=== PATIENT | male | born 1945 | race Caucasian/White ===

== ENCOUNTER 2018-04-09 06:01 | Emergency (ER) | payer MEDICARE, OTHER ==
[2018-04-09 06:38] VITALS: BP 136/88
--- NOTE | 2018-04-09 07:27 | EDM.PDOC ---
ED HPI GENERAL MEDICAL PROBLEM - General Chief Complaint: Lower Extremity Injury/Pain Stated Complaint: RIGHT HIP PAIN Time Seen by Provider: 04/09/18 07:04 Source of Information: Reports: Patient, RN Notes Reviewed History Limitations: Reports: No Limitations - History of Present Illness INITIAL COMMENTS - FREE TEXT/NARRATIVE: 73-year-old gentleman presents to the emergency department today complaint of right hip pain, states had pain for last to 3 days it seems to be more painful in certain positions he is able to ambulate on it. Denies any trauma has never had pain in this hip before no fevers no bruising no redness right hip Pain Score (Numeric/FACES): 2 - Related Data Allergies Allergy/AdvReac Type Severity Reaction Status Date / Time No Known Allergies Allergy Verified 04/09/18 06:28 Home Meds: Home Meds Metoprolol Tartrate 25 mg PO DAILY 04/09/18 [History] Tamsulosin [Flomax] 0.4 mg PO BEDTIME 04/09/18 [History] Warfarin Sodium [Jantoven] 5 mg PO ASDIRECTED 04/09/18 [History] Warfarin Sodium [Jantoven] 7.5 mg PO ASDIRECTED 04/09/18 [History] atorvaSTATin [Lipitor] 20 mg PO BEDTIME 04/09/18 [History] Past Medical History HEENT History: Reports: Impaired Vision Cardiovascular History: Reports: Afib Other Cardiovascular History: dyslipidemia Respiratory History: Reports: Other (See Below) Other Respiratory History: pulmonary nodule left Gastrointestinal History: Reports: Other (See Below) Other Gastrointestinal History: diverticulosis Genitourinary History: Reports: Prostate Disorder Musculoskeletal History: Reports: Osteoarthritis Other Musculoskeletal History: r hip osteoarthritis. l rotator cuff tendonitis. - Infectious Disease History Infectious Disease History: Reports: Measles, Mumps - Past Surgical History HEENT Surgical History: Reports: Detached Retina GI Surgical History: Reports: Hernia Repair/Other Male Surgical History: Reports: TURP-Transurethral Resection of Prostate Social & Family History - Tobacco Use Smoking Status *Q: Never Smoker - Caffeine Use Caffeine Use: Reports: None - Recreational Drug Use Recreational Drug Use: No Review of Systems - Review of Systems Review Of Systems: See Below Constitutional: Denies: Fever Musculoskeletal: Reports: Joint Pain (Right hip pain) ED EXAM, GENERAL - Physical Exam Exam: See Below Free Text/Narrative:: Examination of the right hip I don't appreciate any erythema there is no edema noted there is no point tenderness over the greater trochanter pelvic rock's is negative there is no pain with extension and flexion however he does have pain with internal rotation Exam Limited By: No Limitations General Appearance: Alert, WD/WN, No Apparent Distress Course - Vital Signs Last Recorded V/S: Last Vital Signs Temp 97.7 F 04/09/18 06:38 Pulse 73 04/09/18 06:38 Resp 15 04/09/18 06:38 BP 136/88 04/09/18 06:38 Pulse Ox 98 04/09/18 06:38 - Orders/Labs/Meds Orders: Active Orders 24 hr Category Date Time Status Hip Min 1V w Pelvis Rt [CR] Stat Exams 04/09/18 07:09 Taken Departure - Departure Time of Disposition: 08:09 Disposition: Home, Self-Care 01 Condition: Good Clinical Impression: Right hip pain - Discharge Information Referrals: Rashad Love MD [Primary Care Provider] - Forms: ED Department Discharge Additional Instructions: Please follow-up with orthopedics for further evaluation, call or return to the emergency department worsening of symptoms - My Orders Last 24 Hours: My Active Orders 04/09/18 07:09 Hip Min 1V w Pelvis Rt [CR] Stat - Assessment/Plan Last 24 Hours: My Active Orders 04/09/18 07:09 Hip Min 1V w Pelvis Rt [CR] Stat Plan: Assessment Acuity = acute Site and laterality = right hip pain Etiology = probably related to osteoarthritis Manifestations = none Location of injury = Home Lab values = hip and pelvis x-ray I did review films myself I cannot appreciate any acute process, the official read from radiology is pending Plan Recommended nonsteroidal anti-inflammatories or Tylenol as needed for pain control, consultation set up with orthopedics next week This note was dictated using [employer] voice recognition software please call with any questions on syntax or grammar.
--- NOTE | 2018-04-09 11:02 | CR ---
Hip Min 1V w Pelvis Rt INDICATION: pain FINDINGS: No evidence for acute fracture. Moderate/advanced degenerative arthritis right hip.
== END 2018-04-09 08:24 | disposition home or self-care (01) ==
LOC: JP.ED 06:01
DX: M25.551 Pain in right hip (principal); I48.91 Unspecified atrial fibrillation; E78.5 Hyperlipidemia, unspecified; Z79.899 Other long term (current) drug therapy
CPT/HCPCS: 73501-26-RT; 73501-RT; 99283

== ENCOUNTER 2019-11-02 07:49 | Emergency (ER) | payer MEDICARE, OTHER ==
--- NOTE | 2019-11-02 08:16 | EDM.PDOC ---
ED HPI GENERAL MEDICAL PROBLEM - General Chief Complaint: General Stated Complaint: SOME BLOOD IN THROAT Time Seen by Provider: 11/02/19 08:05 Source of Information: Reports: Patient History Limitations: Reports: No Limitations - History of Present Illness INITIAL COMMENTS - FREE TEXT/NARRATIVE: 74-year-old patient who has chronic atrial fibrillation and who is on Coumadin, woke up this morning with some blood in his mouth. He did not find a source and it has since resolved, he feels fine. No epistaxis that he knows of, no recent trauma. It is been 1 month since he is checked his INR. He has no shortness of breath or cough. He feels fine. Onset: Unknown/Unsure Associated Symptoms: Denies: Chest Pain, Fever/Chills, Headaches, Loss of Appetite, Nausea/Vomiting, Shortness of Breath, Weakness - Related Data Allergies Allergy/AdvReac Type Severity Reaction Status Date / Time No Known Allergies Allergy Verified 04/09/18 06:28 Home Meds: Home Meds Metoprolol Tartrate 25 mg PO DAILY 04/09/18 [History] Tamsulosin [Flomax] 0.4 mg PO BEDTIME 04/09/18 [History] Warfarin Sodium [Jantoven] 5 mg PO ASDIRECTED 04/09/18 [History] Warfarin Sodium [Jantoven] 7.5 mg PO ASDIRECTED 04/09/18 [History] atorvaSTATin [Lipitor] 20 mg PO BEDTIME 04/09/18 [History] Past Medical History HEENT History: Reports: Impaired Vision Cardiovascular History: Reports: Afib Other Cardiovascular History: dyslipidemia Respiratory History: Reports: Other (See Below) Other Respiratory History: pulmonary nodule left Gastrointestinal History: Reports: Other (See Below) Other Gastrointestinal History: diverticulosis Genitourinary History: Reports: Prostate Disorder Musculoskeletal History: Reports: Osteoarthritis Other Musculoskeletal History: r hip osteoarthritis. l rotator cuff tendonitis. - Infectious Disease History Infectious Disease History: Reports: Measles, Mumps - Past Surgical History HEENT Surgical History: Reports: Detached Retina GI Surgical History: Reports: Hernia Repair/Other Male Surgical History: Reports: TURP-Transurethral Resection of Prostate Social & Family History - Tobacco Use Smoking Status *Q: Never Smoker - Caffeine Use Caffeine Use: Reports: None - Recreational Drug Use Recreational Drug Use: No ED ROS GENERAL - Review of Systems Review Of Systems: See Below Constitutional: Denies: Fever, Chills, Malaise HEENT: Reports: Other (No recent epistaxis). Denies: Rhinitis Respiratory: Denies: Shortness of Breath, Wheezing Cardiovascular: Denies: Chest Pain GI/Abdominal: Denies: Abdominal Pain, Nausea, Vomiting Skin: Reports: Bruising (Does tend to bruise easily) Neurological: Denies: Headache ED EXAM, GENERAL - Physical Exam Exam: See Below Exam Limited By: No Limitations General Appearance: Alert, No Apparent Distress Eye Exam: Bilateral Eye: Normal Inspection Nose: Other (No active bleeding or clots in the nares) Throat/Mouth: Normal Inspection (No bleeding or trauma around the teeth, hard and soft palate and oropharynx appeared normal) Head: Atraumatic Respiratory/Chest: No Respiratory Distress, Lungs Clear Course - Vital Signs Last Recorded V/S: Last Vital Signs Temp 97.3 F 11/02/19 08:09 Pulse 55 L 11/02/19 08:09 Resp 16 11/02/19 08:09 BP 134/82 11/02/19 08:09 Pulse Ox 99 11/02/19 08:09 - Orders/Labs/Meds Labs: Laboratory Tests 11/02/19 11/02/19 Range/Units 08:20 08:20 WBC 6.2 (4.5-11.0) K/uL RBC 5.52 (4.30-5.90) M/uL Hgb 16.1 H (12.0-15.0) g/dL Hct 48.1 (40.0-54.0) % MCV 87 (80-98) fL MCH 29 (27-31) pg MCHC 34 (32-36) % Plt Count 157 (150-400) K/uL Neut % (Auto) 76 H (36-66) % Lymph % (Auto) 19 L (24-44) % [place] % (Auto) 5 (2-6) % Eos % (Auto) 0 L (2-4) % Baso % (Auto) 0 (0-1) % PT 29.9 H (9.5-12.0) sec INR 2.94 H (0.80-1.20) - Re-Assessments/Exams Free Text/Narrative Re-Assessment/Exam: 11/02/19 08:16 CBC and INR were obtained. 11/02/19 08:46 Hemoglobin is 16, INR is 2.94. Patient was observed for an hour and had no further bleeding or symptoms. He will hold his Coumadin today, and recheck his INR on Monday as originally planned. Copies of today's labs were given to the patient, and he will return this weekend if bleeding recurs. Departure - Departure Time of Disposition: 08:53 Disposition: Home, Self-Care 01 Clinical Impression: Bleeding from mouth - Discharge Information Instructions: Bleeding Precautions When on Anticoagulant Therapy, Pediatric Referrals: Bean Brink NP [Primary Care Provider] - Forms: ED Department Discharge Care Plan Goals: Hold your Coumadin today, and resume normal doses tomorrow. Take labs with to your lab visit on Monday. Return to the emergency room if bleeding recurs and is persistent. Sepsis Event Note - Evaluation Sepsis Screening Result: No Definite Risk - Focused Exam Vital Signs: Vital Signs Temp Pulse Resp BP Pulse Ox 11/02/19 08:09 97.3 F 55 L 16 134/82 99 11/02/19 08:05 97.3 F 55 L 16 134/82 99 Date Exam was Performed: 11/02/19 Time Exam was Performed: 10:38
[2019-11-02 08:19] VITALS: BP 134/82; PULSE 55
== END 2019-11-02 08:53 | disposition home or self-care (01) ==
LOC: JP.ED 07:49
DX: R58 Hemorrhage, not elsewhere classified (principal); I48.20 Chronic atrial fibrillation, unspecified; E78.5 Hyperlipidemia, unspecified; Z79.01 Long term (current) use of anticoagulants; Z79.899 Other long term (current) drug therapy
CPT/HCPCS: 36415; 85025; 85610; 99283

== ENCOUNTER 2023-03-04 13:59 | Emergency (ER) | payer MEDICARE, OTHER ==
[2023-03-04 16:25] LABS: ESTIMATED GFR 69 mL/min (>60)
[2023-03-04 17:06] VITALS: BP 132/76; PULSE 81
== END 2023-03-04 17:43 | disposition home or self-care (01) ==
LOC: JP.ED 13:59
DX: R07.89 Other chest pain (principal); I48.91 Unspecified atrial fibrillation; E78.00 Pure hypercholesterolemia, unspecified; Z79.01 Long term (current) use of anticoagulants; Z79.899 Other long term (current) drug therapy
CPT/HCPCS: 36415; 71250; 80053; 85025; 85379; 85610; 86140; 99284; 99285

== ENCOUNTER 2024-09-04 08:52 | Day surgery (SDC) | payer MEDICARE, OTHER ==
[2024-09-04] MEDS: Sodium Chloride 0.9% 1,000 ML IV SCH (09:33)
[2024-09-04] MEDS ORDERED: fentaNYL 50 MCG/ML SDV ONE (10:10)
[2024-09-04] MEDS ORDERED: Propofol 200 MG/20 ML SDV ONE (10:10)
[2024-09-04 12:23] VITALS: BP 137/69; PULSE 78
== END 2024-09-04 12:40 | disposition home or self-care (01) ==
LOC: JP.SDS 08:52
PROVIDERS: ATTEND Surgery
DX: Z12.11 Encounter for screening for malignant neoplasm of colon (principal); D12.2 Benign neoplasm of ascending colon; K57.30 Diverticulosis of large intestine without perforation or abscess without bleeding
CPT/HCPCS: 45385; 88305; J2704; J3010; J7030; 00811-QZ